=== PATIENT | female | born 1990 | race Caucasian/White ===

== ENCOUNTER 2019-11-22 12:28 | Emergency (ER) | payer OTHER ==
[~2019-11-22] VITALS: Ht 152.4 cm; Wt 56.7 kg
[2019-11-22] MEDS ORDERED: FAMOTIDINE. 20 MG/2 ML VIAL IV ONE ×2 (13:00→13:16)
[2019-11-22] MEDS ORDERED: ONDANSETRON 4 MG/2 ML VIAL IV ONE (13:00)
[2019-11-22] MEDS ORDERED: IV NORMAL SALINE 1000 ML BAG IV ONE (13:00)
[2019-11-22] MEDS ORDERED: ONDANSETRON 4 MG/2 ML VIAL ONE (13:15)
[2019-11-22 13:19] LABS: BASOPHILS % (AUTO) 0.2 % (0.0-2.0); EOSINOPHILS % (AUTO) 0.1 % (0.0-7.0); HEMATOCRIT 40.9 % (31.2-41.9); HEMOGLOBIN 13.7 g/dL (10.9-14.3); LYMPHOCYTES % (AUTO) 6.6 % (20.5-51.5); MEAN CORPUSCULAR HEMOGLOBIN 30.9 uug (24.7-32.8); MEAN CORPUSCULAR HGB CONC 34 g/dL (32.3-35.6); MEAN CORPUSCULAR VOLUME 92.2 fL (75.5-95.3); MONOCYTES # (AUTO) 0.7 K/uL (2.0-10.0); MONOCYTES % (AUTO) 4.4 % (0.0-11.0); NEUTROPHILS # (AUTO) 13.5 K/uL (1.8-8.9); NEUTROPHILS % (AUTO) 88.7 % (38.5-71.5); PLATELET COUNT (AUTO) 251 K/uL (179-408); RED BLOOD CELL COUNT(AUTO) 4.44 MIL/uL (3.63-4.92); WHITE BLOOD COUNT (AUTO) 15.3 K/uL (3.8-11.8)
--- NOTE | 2019-11-22 13:21 | NUR ---
PT IS IN ROOM #2A. DR LEMUS EVALUATED THE PT.
[2019-11-22 13:26] LABS: CARBON DIOXIDE 25 mmol/L (21-32); CHLORIDE 100 mmol/L (98-107); CREATININE 0.9 mg/dL (0.6-1.3); GLUCOSE 78 mg/dL (74-106); POTASSIUM 3.1 mmol/L (3.5-5.1); UREA NITROGEN, BLOOD 20 mg/dL (7-18)
[2019-11-22 13:32] LABS: ALANINE AMINOTRANSFERASE 39 U/L (14-59); ALKALINE PHOSPHATASE 58 U/L (50-136); ASPARTATE AMINOTRANSFERASE 47 U/L (15-37); BILIRUBIN,DIRECT 0.1 mg/dL (0.0-0.2); BILIRUBIN,TOTAL 0.4 mg/dL (0.2-1.0); LIPASE 65 U/L (73-393); TOTAL PROTEIN, SERUM 8.4 g/dL (6.4-8.2)
--- NOTE | 2019-11-22 14:18 | NUR ---
PT WAS D/C'd TO HOME. D/CINSTRUCTIONS GIVEN TO THE PT BY DR LEMUS.
[2019-11-22 14:19] VITALS: BP 115/65
== END 2019-11-22 14:20 | disposition home or self-care (01) ==
LOC: ER 12:28
DX: R11.2 Nausea with vomiting, unspecified (principal); F41.9 Anxiety disorder, unspecified; F39 Unspecified mood [affective] disorder; Z79.899 Other long term (current) drug therapy; R79.89 Other specified abnormal findings of blood chemistry; E87.6 Hypokalemia
CPT/HCPCS: 99284; 36415; 80048; 80076; 83690; 84702; 85025; 96361; 96374; 96375; J2405; J3490; A4663; J7030